=== PATIENT | female | born 1940 | race Hispanic/Latino ===

== ENCOUNTER → 2018-09-07 | Day surgery (SDC) | payer OTHER ==
[2018-09-04 12:56] LABS: BASOPHILS % 0.3 % (0.0-1.0); EOSINOPHILS # (AUTO) 0.1 (0.0-0.4); EOSINOPHILS % 1.2 % (0.0-6.0); HEMATOCRIT 41.1 % (34.2-44.1); HEMOGLOBIN 13.5 g/dL (12.0-16.0); LYMPHOCYTES % 41.5 % (18.0-39.1); MEAN CORPUSCULAR HEMOGLOBIN 29.3 pg (28-32); MEAN CORPUSCULAR HGB CONC 32.8 g/dL (31-35); MEAN CORPUSCULAR VOLUME 89.3 fL (81-99); MONOCYTES # (AUTO) 0.4 (0.2-0.8); MONOCYTES % 5.4 % (4.4-11.3); NEUTROPHILS # (AUTO) 3.7 (2.1-6.9); NEUTROPHILS % 51.3 % (38.7-80.0); PLATELET COUNT 208 x10e3/uL (140-360); RED CELL DISTRIBUTION WIDTH 13.2 % (11.7-14.4)
--- NOTE | 2018-09-04 13:34 | Diagnostic Imaging Report ---
EXAM: CHEST 2 VIEWS, PA and lateral DATE: 09/04/2018 12:26 PM Time stamp on exam: 12:36 PM INDICATION: Preoperative COMPARISON: None FINDINGS: LINES/TUBES: None LUNGS: The lungs are hyperexpanded. No consolidations or edema. PLEURA: No effusions or pneumothorax. HEART AND MEDIASTINUM: Normal size and contour. BONES AND SOFT TISSUES: No acute findings. IMPRESSION: No acute thoracic abnormality. Signed by: Dr. Robinson Contreras DO on 09/04/2018 1:30 PM
[~2018-09-07] MED LIST: ACETAMINOPHEN 1000 MG/100 ML IV ONE; ATENOLOL25 MG PO; DEXAMETHASONE SOD PHOS INJ 4 MG/ML VIAL ONE; FAMOTIDINE 20 MG TAB ONE; FENTANYL CITRATE/PF 100MCG/2 ML INJ ONE; GABAPENTIN100 MG PO; GLYCOPYRROLATE INJ 1MG/ 5 ML SYR ONE; LIDOCAINE HCL 2% LOCAL INJ 5 ML SDV VIAL INJ ONE; LUMIGAN2.5 M1 OP; METHYLERGONOVINE MALEATE 0.2 MG/ML AMP ONE; MULTIVITAMINS1 EAC7 PO; OMEPRAZOLE20 MG PO; ONDANSETRON HCL INJ 2 MG/ML VIAL ONE; OXYBUTYNIN CHLOR5 MG PO; PROPOFOL IV EMULSION 10 MG/ML 20 ML VIAL ONE; RESTASIS1 EACH OP; SEVOFLURANE INHAL SOLN 250 ML PEN BTL ONE; VITAMIN B-125000 MCG SL
--- OUTSIDE RECORDS SUMMARY | 2018-09-07 05:22 | XMS REPORT ---
Author Author [facility] Address Unknown Phone Unavailable Care Team Providers Care Due Diligence Coordinator Name Role Phone Riley HERNÁNDEZ Unavailable Unavailable Problems This patient has no known problems. Allergies, Adverse Reactions, Alerts This patient has no known allergies or adverse reactions. Medications This patient has no known medications. Results Test Description Test Time Test Comments Text Results Atomic Results Result Comments CHEST 2 VIEWS 2018-09-04 13:28:00 [place] [address] Patient Name: OLVIN BRAND MR #: [id number] : 1940 Age/Sex: 77/F Req #: [id number] Adm Physician: Ordered by: DAYO HERNÁNDEZ MD Report #: [id number] Location: OR Room/Bed: Procedure: [id number] DX/CHEST 2 VIEWS Exam Date: 09/04/18 Exam Time: 1231 REPORT STATUS: Signed EXAM: CHEST 2 VIEWS, PA and lateral DATE: 09/04/2018 12:26 PM Time stamp on exam: 12:36 PM INDICATION: Preoperative COMPARISON: None FINDINGS: LINES/TUBES: None LUNGS: The lungs are hyperexpanded. No consolidations or edema. PLEURA: No effusions or pneumothorax. HEART AND MEDIASTINUM: Normal size and contour. BONES AND SOFT TISSUES: No acute findings. IMPRESSION: No acute thoracic abnormality. Signed by: Dr. Rafael Rhodes DO on 09/04/2018 1:30 PM Dictated By: RAFAEL RHODES DO [id number] Transcribed By: FRANK on 09/04/18 5520 COPY TO: DAYO HERNÁNDEZ MD
[2018-09-07 09:30] VITALS: BP 162/72
--- NOTE | 2018-09-08 17:30 | Operative Report ---
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 PREOPERATIVE DIAGNOSIS: Postmenopausal bleeding. POSTOPERATIVE DIAGNOSIS: Postmenopausal bleeding. PROCEDURES PERFORMED 1. Hysteroscopy. 2. Dilatation and curettage. ANESTHESIA: General. ESTIMATED BLOOD LOSS: Minimal. COMPLICATIONS: None. FINDINGS: Patient has a small anteverted uterus with hysteroscopic findings of normal appearance of endometrium other than some polypoid endometrial tissue close to the internal os. SPECIMENS: Endometrial curettings. INDICATIONS: The patient is a 77-year-old postmenopausal female with a history of postmenopausal bleeding and thickened endometrium as well a stenotic cervix. PROCEDURE NOTE: Prior to the procedure, the risks, benefits, indications, and alternatives were discussed with the patient and the patient agreed to proceed. Following anesthesia, the patient was placed in modified dorsal lithotomy position in [facility]. Prepping and draping were performed in typical sterile fashion and a time-out was done. A weighted speculum was placed in the vagina. The cervix was grasped with a single-toothed tenaculum. The cervix was then sequentially dilated and the hysteroscope was then inserted with findings as previously mentioned. A sharp curettage was then performed until a gritty texture was noted in all 4 quadrants. Endometrial tissue was sent to pathologist. All instruments were then removed from the patient. tenaculum sites were noted to be hemostatic. The patient was transferred to the recovery room in stable condition. Job#: [id number] CQ
== END | disposition home or self-care (01) ==
LOC: OR 05:21
PROVIDERS: ATTEND Obstetrics & Gynecology Obstetrics
DX: N95.0 Postmenopausal bleeding (principal); R93.89 Abnormal findings on diagnostic imaging of other specified body structures; E78.5 Hyperlipidemia, unspecified; K21.9 Gastro-esophageal reflux disease without esophagitis; G89.29 Other chronic pain; M54.9 Dorsalgia, unspecified; N32.81 Overactive bladder; F03.90 Unspecified dementia, unspecified severity, without behavioral disturbance, psychotic disturbance, mood disturbance, and anxiety; G62.9 Polyneuropathy, unspecified; I49.9 Cardiac arrhythmia, unspecified; Z01.818 Encounter for other preprocedural examination; Z01.810 Encounter for preprocedural cardiovascular examination; Z01.812 Encounter for preprocedural laboratory examination
CPT/HCPCS: 36415; 58558; 71046; 85025; 88305; 93005; J0131; J1100; J2001; J2210; J2405; J2704; J3490